=== PATIENT | female | born 1960 | race Caucasian/White ===

== ENCOUNTER 2023-03-23 06:25 | Day surgery (SDC) | payer BC ==
[2023-03-23] VITALS (9 sets, daily range): BP systolic 115–137; BP diastolic 33–96; PULSE 60–61; RESP 10–26; TEMP 97.8; O2SAT 93–99
[~2023-03-23] VITALS: Ht 162.6 cm; Wt 117.5 kg
[2023-03-23] MEDS ORDERED: vancomycin 1,500 MG in NS 300ml IV soln IV ONE (07:40)
[2023-03-23] MEDS ORDERED: cefazolin 2gm/D5W 100mL 100 ML IV ONE (07:40)
[2023-03-23 07:54] LABS: BASOPHILS % (AUTO) 0.6 % (0-1); EOSINOPHILS # (AUTO) 0.1 X10'3 (0-0.9); EOSINOPHILS % (AUTO) 1.3 % (0-6); HEMATOCRIT 44.1 % (35.0-45.0); HEMOGLOBIN 14.9 g/dl (12.0-16.0); LYMPHOCYTES # (AUTO) 2.1 X10'3 (1.1-4.8); LYMPHOCYTES % (AUTO) 31.9 % (21-51); MEAN CORPUSCULAR HEMOGLOBIN 30.3 PG (27.0-31.0); MEAN CORPUSCULAR HGB CONC 33.7 g/dL (33.0-36.5); MEAN PLATELET VOLUME 7.4 FL (7.4-10.4); MONOCYTES # (AUTO) 0.7 X10'3 (0-0.9); MONOCYTES % (AUTO) 9.9 % (2-12); NEUTROPHILS # (AUTO) 3.7 X10'3 (1.8-7.7); NEUTROPHILS % (AUTO) 56.3 % (42-75); PLATELET COUNT 241 X10'3 (140-440); RED CELL DISTRIBUTION WIDTH 14.3 % (11.5-14.5); WHITE BLOOD COUNT 6.6 X10'3 (4.5-11.0)
[2023-03-23 08:00] LABS: ALBUMIN 4.3 G/DL (3.4-5.0); ANION GAP 10 (8-16); BLOOD UREA NITROGEN 32 MG/DL (7-18); BUN/CREATININE RATIO 26.4 (10.0-20.0); CALCIUM 9.8 MG/DL (8.5-10.1); CHLORIDE 102 MMOL/L (99-107); CREATININE 1.21 MG/DL (0.40-0.90); GLUCOSE 91 MG/DL (70-104); POTASSIUM 4.1 MMOL/L (3.5-5.1); SODIUM 139 MMOL/L (135-145); TOTAL CARBON DIOXIDE 27.4 MMOL/L (24-32); eCRCL 41 ML/MIN; eGFR 45 ML/MIN
[2023-03-23 08:02] LABS: PROTHROMBIN TIME 9.9 SECONDS (9.0-12.0)
[2023-03-23 08:04] LABS: INR 0.9 INR
[2023-03-23] MEDS ORDERED: ASPI-10 PO (08:56)
[2023-03-23] MEDS ORDERED: FURO-150 PO (08:56)
[2023-03-23] MEDS ORDERED: LISI5TAB22 PO (08:56)
[2023-03-23] MEDS ORDERED: MULT-1085 PO (08:56)
[2023-03-23] MEDS ORDERED: HYDR50CA PO (08:56)
[2023-03-23] MEDS ORDERED: METO-395 PO (08:56)
[2023-03-23] MEDS ORDERED: CELE-28 PO (08:56)
[2023-03-23] MEDS ORDERED: LIDOCAINE 2%/EPI 1:100,000 inj. Multi-dose 20 ML VIAL ONE (09:04)
[2023-03-23] MEDS ORDERED: fentaNYL/PF 50MCG/1 ML 2ML syringe ONE (09:04)
[2023-03-23] MEDS ORDERED: midazolam 1 mg/ML 2ml injection ONE ×4 (09:04→09:59)
[2023-03-23] MEDS ORDERED: vancomycin 1,000mg inj ONE (09:04)
[2023-03-23] MEDS ORDERED: HYDROmorphone 1 mg/ml syringe ONE (09:59)
[2023-03-23] MEDS ORDERED: normal saline 1000ml 1,000 ML IV SCH (11:10)
[2023-03-23] MEDS ORDERED: pneumococcal 23-VAL P-sac vacc 25 mcg/0.5ml vial IMVAC ONE ×2 (11:55→12:00)
[2023-03-23] MEDS ORDERED: FLU VACC QS2023-24(6MOS UP)/PF 60 MCG/0.5 ML SYRINGE IM ONE (12:00)
[2023-03-23 13:01] LABS: CHOL/HDL RATIO 3.3 (0.00-4.99); CHOLESTEROL 236 MG/DL (0-200); HDL CHOLESTEROL 72 MG/DL (35-60); LDL CHOLESTEROL 141 MG/DL (50-100); TRIGLYCERIDES 61 MG/DL (20-135)
== END 2023-03-23 13:07 | disposition home or self-care (01) ==
LOC: SSTAY O 06:25
PROVIDERS: ATTEND Internal Medicine Cardiovascular Disease
DX: Z45.010 Encounter for checking and testing of cardiac pacemaker pulse generator [battery] (principal); I48.0 Paroxysmal atrial fibrillation; I49.5 Sick sinus syndrome; I42.7 Cardiomyopathy due to drug and external agent; I10 Essential (primary) hypertension; I45.10 Unspecified right bundle-branch block; E66.01 Morbid (severe) obesity due to excess calories; Z68.41 Body mass index [BMI] 40.0-44.9, adult; E78.5 Hyperlipidemia, unspecified; Z86.73 Personal history of transient ischemic attack (TIA), and cerebral infarction without residual deficits; Z79.82 Long term (current) use of aspirin; Z79.899 Other long term (current) drug therapy; Z90.710 Acquired absence of both cervix and uterus; Z98.890 Other specified postprocedural states; Z88.8 Allergy status to other drugs, medicaments and biological substances; Z87.891 Personal history of nicotine dependence; Z72.89 Other problems related to lifestyle; Z23 Encounter for immunization
CPT/HCPCS: 33229; 36415; 80048; 80061; 85025; 85610; 90471; 90686; 90732; 93005; 99152; 99153; C2621; J1170; J2250; J3010; J3370; J7030; 33221; 33228; C1785